=== PATIENT | male | born 1960 | race Asian ===

== ENCOUNTER 2018-10-12 12:42 | Day surgery (SDC) | payer MEDICAID ==
[~2018-10-12] VITALS: Ht 165.1 cm; Wt 68.2 kg
[~2018-10-12 12:42] MED LIST: CYCL-1 PO
[2018-10-12 12:50] VITALS: BP 141/77
[2018-10-12] MEDS ORDERED: VITAMIN D PO (13:16)
[2018-10-12] MEDS ORDERED: ERGO500054 (13:18)
[2018-10-12] MEDS ORDERED: ATOR20TA66 (13:18)
[2018-10-12] MEDS ORDERED: MIDAZolam 5mg/5ml vial ONE (14:00)
[2018-10-12] MEDS ORDERED: fentaNYL/PF 50MCG/1 ML 2ML syringe ONE (14:00)
[2018-10-12 14:30] VITALS: BP 119/72
[2018-10-12 14:40] VITALS: BP 121/78
[2018-10-12 14:50] VITALS: BP 130/79
[2018-10-12 15:00] VITALS: BP 125/73
== END 2018-10-12 15:15 | disposition home or self-care (01) ==
LOC: GI LAB 12:42 → EDSEX 12:42 → GI LAB 15:15
PROVIDERS: ATTEND Internal Medicine Gastroenterology
DX: K63.5 Polyp of colon (principal); K64.8 Other hemorrhoids; K62.1 Rectal polyp; K63.89 Other specified diseases of intestine
CPT/HCPCS: 45380; 45385; 99152; 99153; C1773; J2250; J3010; J7040; A4620